=== PATIENT | male | born 1990 | race Caucasian/White ===

== ENCOUNTER 2025-05-20 09:21 | Inpatient (IN) | payer OTHER ==
[~2025-05-20] VITALS: Ht 177.8 cm; Wt 72.7 kg
[2025-05-20 10:05] LABS: PLATELET COUNT (AUTO) 274 K/uL (150-450); RED BLOOD CELL COUNT(AUTO) 4.77 MIL/uL (4.50-5.90); RED CELL DISTRIBUTION WIDTH 14.0 % (11.5-14.5); WHITE BLOOD COUNT (AUTO) 6.7 K/uL (4.5-11.0)
[2025-05-20 10:12] LABS: CALCIUM, TOTAL 9.1 mg/dL (8.8-10.5); CREATININE 0.89 mg/dL (0.60-1.30); GLOMERULAR FILTR. RATE CALC > 60 mL/min (>60); GLUCOSE,RANDOM 105 mg/dL (70-110); SODIUM SERUM 140 mmol/L (136-145); UREA NITROGEN, BLOOD 10 mg/dL (7-18)
[2025-05-20 10:17] LABS: ASPARTATE AMINOTRANSFERASE 22 U/L (15-37); TOTAL PROTEIN, SERUM 7.1 g/dL (6.4-8.2)
[2025-05-20 10:26] LABS: ALCOHOL, BLOOD (SERUM) < 3 mg/dL (0-10)
[2025-05-20 12:23] VITALS: BP 113/83; PULSE 51; RESP 20; TEMP 97.7
[2025-05-20] MEDS ORDERED: BISACODYL 10 MG RECTAL RECTAL SUPPOSITORY PR PRN (12:45)
[2025-05-20] MEDS ORDERED: ALBUTEROL SULFATE HFA 90 MCG/PUFF 8 GM INHALER IH PRN (12:45)
[2025-05-20] MEDS ORDERED: LOPERAMIDE HCL 2 MG CAPSULE PO PRN (12:45)
[2025-05-20] MEDS ORDERED: METOCLOPRAMIDE HCL 5 MG/ML 2 ML VIAL IVP PRN (12:45)
[2025-05-20] MEDS ORDERED: ZOLPIDEM TARTRATE 5 MG TABLET PO PRN (12:45)
[2025-05-20] MEDS: HEPARIN SODIUM,PORCINE 5,000 UNITS/ML VIAL SQ SCH (16:38)
[2025-05-20 19:15] LABS: PH,URINE DRUG SCREEN 7.5 (5.0-8.0)
[2025-05-20 19:22] LABS: ALCOHOL, URINE DRUG SCREEN NEGATIVE (NEGATIVE); AMPHET/METH SCREEN,URINE POSITIVE (NEGATIVE); BARBITURATE SCREEN, URINE NEGATIVE (NEGATIVE); CANNABINOID SCREEN,URINE NEGATIVE (NEGATIVE); COCAINE SCREEN,URINE NEGATIVE (NEGATIVE); METHADONE SCREEN, URINE NEGATIVE (NEGATIVE)
[2025-05-20 19:55] VITALS: BP 93/72; PULSE 81; RESP 18; TEMP 97.5
[2025-05-20] MEDS: DOCUSATE SODIUM 100 MG CAPSULE PO SCH (20:15)
[2025-05-20] MEDS: TEMAZEPAM 15 MG CAPSULE PO SCH (20:15)
[2025-05-21 05:05] VITALS: BP 106/74; PULSE 70; RESP 18; TEMP 98.1; O2SAT 98
[2025-05-21] MEDS: DICYCLOMINE HCL 10 MG CAPSULE PO PRN (05:11)
[2025-05-21] MEDS: LORazepam 2 MG/ML VIAL IVP PRN (05:11)
[2025-05-21 07:06] LABS: PLATELET COUNT (AUTO) 266 K/uL (150-450); RED BLOOD CELL COUNT(AUTO) 4.89 MIL/uL (4.50-5.90); RED CELL DISTRIBUTION WIDTH 14.0 % (11.5-14.5); WHITE BLOOD COUNT (AUTO) 6.0 K/uL (4.5-11.0)
[2025-05-21 07:13] LABS: CALCIUM, TOTAL 8.9 mg/dL (8.8-10.5); CREATININE 0.87 mg/dL (0.60-1.30); GLOMERULAR FILTR. RATE CALC > 60 mL/min (>60); GLUCOSE,RANDOM 88 mg/dL (70-110); SODIUM SERUM 139 mmol/L (136-145); UREA NITROGEN, BLOOD 9 mg/dL (7-18)
[2025-05-21 08:00] VITALS: BP 116/73; PULSE 91; RESP 19; TEMP 97.5; O2SAT 99
[2025-05-21] MEDS: PANTOPRAZOLE SODIUM 40 MG DR TABLET PO SCH (08:44)
[2025-05-21] MEDS: ONDANSETRON HCL 4 MG/2 ML VIAL IVP PRN (08:49)
[2025-05-21 16:30] VITALS: BP 109/74; PULSE 74; RESP 18; TEMP 96.8; O2SAT 99
[2025-05-21 19:37] VITALS: BP 112/80; PULSE 77; RESP 18; TEMP 97.5; O2SAT 96
[2025-05-22] MEDS: ACETAMINOPHEN 325 MG TABLET PO PRN (00:04)
[2025-05-22 05:53] VITALS: BP 108/80; PULSE 64; RESP 18; TEMP 98.1; O2SAT 97
[2025-05-22 07:14] LABS: PLATELET COUNT (AUTO) 276 K/uL (150-450); RED BLOOD CELL COUNT(AUTO) 5.09 MIL/uL (4.50-5.90); RED CELL DISTRIBUTION WIDTH 13.8 % (11.5-14.5); WHITE BLOOD COUNT (AUTO) 7.7 K/uL (4.5-11.0)
[2025-05-22 07:23] LABS: CALCIUM, TOTAL 8.9 mg/dL (8.8-10.5); CREATININE 0.89 mg/dL (0.60-1.30); GLOMERULAR FILTR. RATE CALC > 60 mL/min (>60); GLUCOSE,RANDOM 88 mg/dL (70-110); SODIUM SERUM 139 mmol/L (136-145); UREA NITROGEN, BLOOD 10 mg/dL (7-18)
[2025-05-22 08:00] VITALS: BP 104/77; PULSE 79; RESP 16; TEMP 98; O2SAT 97
[2025-05-22] MEDS: MAGNESIUM HYDROXIDE SUSPENSION 30 ML UDCUP PO PRN (08:09)
[2025-05-22] MEDS: LACTULOSE 20 GM/30 ML SOLUTION UDCUP PO PRN (17:45)
[2025-05-22 19:33] VITALS: BP 110/82; PULSE 87; RESP 18; TEMP 98.2; O2SAT 97
[2025-05-23 04:40] VITALS: BP 106/76; PULSE 83; RESP 18; TEMP 97.6; O2SAT 98
[2025-05-23 07:18] LABS: PLATELET COUNT (AUTO) 275 K/uL (150-450); RED BLOOD CELL COUNT(AUTO) 5.36 MIL/uL (4.50-5.90); RED CELL DISTRIBUTION WIDTH 13.6 % (11.5-14.5); WHITE BLOOD COUNT (AUTO) 8.2 K/uL (4.5-11.0)
[2025-05-23 07:26] LABS: CALCIUM, TOTAL 8.9 mg/dL (8.8-10.5); CREATININE 0.91 mg/dL (0.60-1.30); GLOMERULAR FILTR. RATE CALC > 60 mL/min (>60); GLUCOSE,RANDOM 79 mg/dL (70-110); SODIUM SERUM 139 mmol/L (136-145); UREA NITROGEN, BLOOD 12 mg/dL (7-18)
[2025-05-23 07:30] VITALS: BP 101/63; PULSE 78; RESP 18; TEMP 98.1; O2SAT 98
[2025-05-23 20:13] VITALS: BP 105/83; PULSE 71; RESP 18; TEMP 97.9; O2SAT 100
[2025-05-24 05:19] VITALS: BP 112/75; PULSE 55; RESP 18; TEMP 97.3; O2SAT 100
[2025-05-24 08:18] VITALS: BP 118/74; PULSE 52; RESP 18; TEMP 98.1; O2SAT 100
[2025-05-24] MEDS ORDERED: ALBU18HF12 IH (14:12)
[2025-05-24] MEDS ORDERED: HYDR-3831 PO (14:14)
[2025-05-24] MEDS ORDERED: LACT10SO85 PO (14:15)
[2025-05-24 15:44] VITALS: BP 114/74; PULSE 58; RESP 18; TEMP 97.5; O2SAT 100
[2025-05-24 20:30] VITALS: BP 109/69; PULSE 61; RESP 18; TEMP 97.7; O2SAT 100
[2025-05-25 05:45] VITALS: BP 106/66; PULSE 55; RESP 18; TEMP 97.6; O2SAT 100
== END 2025-05-25 07:15 | DRG 897 ==
LOC: EMS 09:28 → EDH 10:54 → 6N 12:00
PROVIDERS: ADMIT Internal Medicine; ATTEND Internal Medicine
DX: F11.93 Opioid use, unspecified with withdrawal (principal); J45.909 Unspecified asthma, uncomplicated; F15.90 Other stimulant use, unspecified, uncomplicated; F41.9 Anxiety disorder, unspecified; K59.00 Constipation, unspecified; F17.210 Nicotine dependence, cigarettes, uncomplicated
CPT/HCPCS: 80048; 80076; 80307; 85025; 99285; G0480; J1644; J2060; J2405

== ENCOUNTER 2025-05-25 13:27 | Inpatient (IN) | payer OTHER ==
[~2025-05-25] VITALS: Ht 175.3 cm; Wt 72.7 kg
[~2025-05-25 13:27] MED LIST: ALBU18HF12 IH; HYDR-3831 PO; LACT10SO85 PO
[2025-05-25] MEDS: ONDANSETRON HCL 4 MG/2 ML VIAL IVP ONE (15:09)
[2025-05-25] MEDS: FAMOTIDINE 20 MG/2 ML VIAL IVP ONE (15:09)
[2025-05-25 15:25] LABS: PLATELET COUNT (AUTO) 367 K/uL (150-450); RED BLOOD CELL COUNT(AUTO) 5.54 MIL/uL (4.50-5.90); RED CELL DISTRIBUTION WIDTH 14.1 % (11.5-14.5); WHITE BLOOD COUNT (AUTO) 12.7 K/uL (4.5-11.0)
[2025-05-25] MEDS: ACETAMINOPHEN 325 MG TABLET PO ONE (15:28)
[2025-05-25 15:36] LABS: CALCIUM, TOTAL 9.2 mg/dL (8.8-10.5); CREATININE 1.00 mg/dL (0.60-1.30); GLOMERULAR FILTR. RATE CALC > 60 mL/min (>60); GLUCOSE,RANDOM 104 mg/dL (70-110); SODIUM SERUM 140 mmol/L (136-145); UREA NITROGEN, BLOOD 11 mg/dL (7-18)
[2025-05-25 15:46] LABS: ASPARTATE AMINOTRANSFERASE 24 U/L (15-37); TOTAL PROTEIN, SERUM 8.3 g/dL (6.4-8.2)
[2025-05-25 16:27] LABS: ALCOHOL, BLOOD (SERUM) < 3 mg/dL (0-10)
[2025-05-25] MEDS ORDERED: LORazepam 2 MG/ML VIAL IVP PRN (16:30)
[2025-05-25] MEDS ORDERED: ALBUTEROL SULFATE HFA 90 MCG/PUFF 8 GM INHALER IH PRN (16:30)
[2025-05-25] MEDS ORDERED: LACTULOSE 20 GM/30 ML SOLUTION UDCUP PO PRN (16:30)
[2025-05-25] MEDS ORDERED: DICYCLOMINE HCL 10 MG CAPSULE PO PRN (16:30)
[2025-05-25] MEDS ORDERED: LOPERAMIDE HCL 2 MG CAPSULE PO PRN (16:30)
[2025-05-25 20:52] VITALS: BP 116/74; PULSE 58; RESP 20; TEMP 98; O2SAT 95
[2025-05-25] MEDS: TEMAZEPAM 15 MG CAPSULE PO SCH (21:20)
[2025-05-26] MEDS: HEPARIN SODIUM,PORCINE 5,000 UNITS/ML VIAL SQ SCH
[2025-05-26 04:31] VITALS: BP 115/86; PULSE 60; RESP 18; TEMP 98.8; O2SAT 97
[2025-05-26 09:11] VITALS: BP 98/67; PULSE 57; RESP 18; TEMP 97.7; O2SAT 100
[2025-05-26] MEDS: METOCLOPRAMIDE HCL 5 MG/ML 2 ML VIAL IVP PRN (09:11)
[2025-05-26 09:30] VITALS: BP 118/84; PULSE 62
[2025-05-26 12:46] LABS: PH,URINE DRUG SCREEN 6.0 (5.0-8.0)
[2025-05-26 12:47] LABS: ALCOHOL, URINE DRUG SCREEN NEGATIVE (NEGATIVE); AMPHET/METH SCREEN,URINE POSITIVE (NEGATIVE); BARBITURATE SCREEN, URINE NEGATIVE (NEGATIVE); CANNABINOID SCREEN,URINE NEGATIVE (NEGATIVE); COCAINE SCREEN,URINE NEGATIVE (NEGATIVE); METHADONE SCREEN, URINE NEGATIVE (NEGATIVE)
[2025-05-26] MEDS: 1: MAGNESIUM SULFATE 2 GM, MVI, ADULT NO.1 WITH VIT K 10 ML, THIAMINE 100 MG, FOLIC ACID IV SCH (16:19)
[2025-05-26] MEDS ORDERED: LORazepam 2 MG/ML VIAL IVP PRN (17:30)
[2025-05-26] MEDS: BUPRENORPHINE HCL/NALOXONE HCL 2-0.5 MG SUBLINGUAL TABLET SL SCH (20:59)
[2025-05-26 21:18] VITALS: BP 112/73; PULSE 68; RESP 18; TEMP 98.4; O2SAT 100
[2025-05-27 02:07] VITALS: BP 110/72; PULSE 54; RESP 17; TEMP 98.1; O2SAT 100
[2025-05-27 04:53] VITALS: BP 93/54; PULSE 54; RESP 17; RESP 7; TEMP 98.8; O2SAT 100
[2025-05-27 07:50] VITALS: BP 100/64; PULSE 52; RESP 17; TEMP 97.7; O2SAT 98
[2025-05-27 11:23] VITALS: BP 110/66; PULSE 56; RESP 18; TEMP 97.7; O2SAT 99
[2025-05-27 13:14] LABS: PLATELET COUNT (AUTO) 322 K/uL (150-450); RED BLOOD CELL COUNT(AUTO) 5.20 MIL/uL (4.50-5.90); RED CELL DISTRIBUTION WIDTH 13.9 % (11.5-14.5); WHITE BLOOD COUNT (AUTO) 8.4 K/uL (4.5-11.0)
[2025-05-27 13:23] LABS: CALCIUM, TOTAL 8.3 mg/dL (8.8-10.5); CREATININE 1.03 mg/dL (0.60-1.30); GLOMERULAR FILTR. RATE CALC > 60 mL/min (>60); GLUCOSE,RANDOM 112 mg/dL (70-110); SODIUM SERUM 142 mmol/L (136-145); UREA NITROGEN, BLOOD 8 mg/dL (7-18)
[2025-05-27 15:58] VITALS: BP 111/74; PULSE 69; RESP 18; TEMP 98.2; O2SAT 98
[2025-05-27 20:04] VITALS: BP 119/77; PULSE 73; RESP 18; TEMP 98.4; O2SAT 100
[2025-05-27] MEDS ORDERED: SODIUM CHLORIDE 0.9% 1,000 ML ONE (21:40)
[2025-05-28 05:20] VITALS: BP 110/77; PULSE 54; RESP 18; TEMP 98.1; O2SAT 97
[2025-05-28 08:00] VITALS: BP 123/73; PULSE 54; RESP 19; TEMP 97.5; O2SAT 97
[2025-05-28] MEDS ORDERED: HYDR25TA83 PO (15:30)
[2025-05-28 19:35] VITALS: BP 144/87; PULSE 99; RESP 18; TEMP 99.1; O2SAT 97
[2025-05-29 04:00] VITALS: BP 108/74; PULSE 58; RESP 18; TEMP 97.9; O2SAT 100
[2025-05-29 08:06] VITALS: BP 109/70; PULSE 50; RESP 18; TEMP 98.6; O2SAT 100
== END 2025-05-29 09:00 | DRG 897 ==
LOC: EMS 13:31 → EDH 16:01 → 6S 20:28 → 5S 05-27 01:43 → 6N 05-27 18:01
PROVIDERS: ADMIT Internal Medicine; ATTEND Internal Medicine
DX: F11.93 Opioid use, unspecified with withdrawal (principal); J45.909 Unspecified asthma, uncomplicated; F15.90 Other stimulant use, unspecified, uncomplicated; K59.00 Constipation, unspecified; F10.90 Alcohol use, unspecified, uncomplicated; Y90.9 Presence of alcohol in blood, level not specified; F17.210 Nicotine dependence, cigarettes, uncomplicated
CPT/HCPCS: 80048; 80076; 80307; 85025; 96374; 96375; 99285; G0480; J1644; J2405; J2765; J3411; J3475; J3490; J7030